=== PATIENT | female | born 1965 | race African-American/Black ===

== ENCOUNTER 2017-12-04 10:13 | Emergency (ER) | payer SELFPAY ==
[2017-12-04 10:17] VITALS: BP 160/95; PULSE 86; TEMP 98.6; BMI 39.2
[2017-12-04] MEDS ORDERED: KETOROLAC TROMETHAMINE 60 MG/2 ML VIAL IM ONE (10:49)
--- NOTE | 2017-12-04 10:49 | PDOC ---
History of Present Illness - General Chief Complaint: Pain Stated Complaint: RT KNEE PAIN Time Seen by Provider: 12/04/17 10:34 History Source: Patient Exam Limitations: No Limitations - History of Present Illness Initial Comments: CHIEF COMPLAINT: 52 y/o morbidly obese female with PMH b/l knee issues c/o right knee pain since this morning. HISTORY OF PRESENT ILLNESS: The patient was walking to the bus when she felt a pop in her right knee and then it became very painful. She states by the time she got here she was hardly able to walk. She denies fall/trauma to knee and all other symptoms. Vital signs on arrival are within normal limits. REVIEW OF SYSTEMS: GENERAL/CONSTITUTIONAL: No fever/chills. No weakness. No weight change. MUSCULOSKELETAL: +right knee pain. No neck or back pain. SKIN: No rash or easy bruising. NEUROLOGIC: No headache, vertigo, loss of consciousness, or loss of sensation. PHYSICAL EXAM: VITAL_SIGNS: within normal limits GENERAL_APPEARANCE: alert, cooperative, obvious discomfort with ambulation. Patient with abnormal gait secondary to pain. MENTAL_STATUS: speech clear, oriented X 3, responds appropriately to questions. NEURO: motor intact and sensory intact in injured extremity. EXTREMITIES: Right knee with swelling to anterior patella. Pain with palpation of right lateral joint line and with movement of patella. No erythema or warmth. SKIN: warm, dry, good color. Past History - Past Medical History Allergies/Adverse Reactions: Allergies Allergy/AdvReac Type Severity Reaction Status Date / Time No Known Allergies Allergy Verified 12/04/17 10:14 Home Medications: Ambulatory Orders No Home Medications 0 dose .ROUTE UTDICT 09/07/12 Meclizine HCl [Antivert -] 25 mg PO TID #15 tablet 10/28/12 Ibuprofen 600 mg PO TID #20 tablet 12/04/17 COPD: No HTN: Yes (FLUCUTATE , NOT ON MEDS) Other medical history: MIGRAINES, CLUSTER HEADACHE. - Suicide/Smoking/Psychosocial Hx Smoking Status: No Smoking History: Never smoked Have you smoked in the past 12 months: No Number of Cigarettes Smoked Daily: 0 Information on smoking cessation initiated: No Hx Alcohol Use: No Drug/Substance Use Hx: No Substance Use Type: None *Physical Exam - Vital Signs Last Vital Signs Temp Pulse Resp BP Pulse Ox 98.6 F 86 18 160/95 100 12/04/17 10:15 12/04/17 10:15 12/04/17 10:15 12/04/17 10:15 12/04/17 10:15 Medical Decision Making - Medical Decision Making A/P: 52 y/o female with right knee pain, most likely soft tissue injury. Plan is as follows: 1. xray right knee 2. IM toradol Xray right knee IMPRESSION: No acute bony deformities Patient was given results. Put in immobilizer and given crutches. Surgeon is Dr. Zaman so provided her with his contact info and suggested she call today for f/u appointment. Sent rx for ibuprofen and suggested she take with food and follow RICE instructions. The patient verbalizes understanding of all instructions, has no further questions and is awaiting discharge. *DC/Admit/Observation/Transfer Diagnosis at time of Disposition: Knee injury Qualifiers: Encounter type: initial encounter Laterality: right Qualified Code(s): S89.91XA - Unspecified injury of right lower leg, initial encounter - Discharge Dispostion Disposition: HOME Condition at time of disposition: Good - Prescriptions Prescriptions: Ibuprofen 600 mg PO TID #20 tablet - Referrals Referrals: Desmond Baron [Primary Care Provider] - Hugh Zaman MD [Staff Physician] - Call tomorrow - Patient Instructions Printed Discharge Instructions: How to Use Crutches, How To Perform RICE (Rest , Ice, Compress, Elevate), DI for Knee Pain, How to Use a Knee Immobilizer Additional Instructions: Discharge Instructions: -Your xray showed no broken bones -Use immobilizer and crutches until you seen Dr. Zaman -A prescription for Ibuprofen has been sent to your pharmacy; please take with food -Follow RICE instructions -Return to the ER with any worsening or concerning symptoms - Post Discharge Activity Forms/Work/School Notes: Back to Work
[2017-12-04] MEDS ORDERED: KETOROLAC TROMETHAMINE 60 MG/2 ML VIAL ONE (10:50)
== END 2017-12-04 11:30 | disposition home or self-care (01) ==
LOC: JERFT 10:13
PROC: 3E0233Z Introduction of Anti-inflammatory into Muscle, Percutaneous Approach (ICD-10-PCS; principal; 2017-12-04)
DX: S89.91XA Unspecified injury of right lower leg, initial encounter (principal); X50.3XXA Overexertion from repetitive movements, initial encounter; Y93.01 Activity, walking, marching and hiking; Y92.480 Sidewalk as the place of occurrence of the external cause
CPT/HCPCS: 73560-TC-RT-FY; 99281-25